=== PATIENT | male | born 1965 | race Caucasian/White ===

== ENCOUNTER 2022-09-22 18:20 | Inpatient (IN) | payer SELFPAY ==
[~2022-09-22 18:20] MED LIST: Iopamidol 370 76% 100 ML VIAL ONE
[2022-09-22] MEDS ORDERED: Nitroglycerin 0.4 MG TAB (25 Tab Bottle) SL PRN (20:08)
[2022-09-22] MEDS ORDERED: Morphine 2 MG/ML VIAL SLOW IVP PRN (20:08)
[2022-09-22] MEDS ORDERED: Aggrastat 12.5 MG/250 ML 250 ML IVPB SCH (20:15)
[2022-09-22] MEDS ORDERED: Heparin 10,000 UNITS/ 10 ML VIAL SLOW IVP SCH (20:30)
[2022-09-22] MEDS ORDERED: Heparin 25,000 units/D5W 500 ML IVPB SCH (20:30)
[2022-09-22 21:12] VITALS: BMI 27.0
[2022-09-22] MEDS: Atorvastatin Calcium 40 MG TAB PO SCH (21:29)
[2022-09-22] MEDS ORDERED: Clopidogrel Bisulfate 300 MG TAB PO SCH (21:30)
[2022-09-22 21:55] LABS: Hemoglobin 15.2 g/dL (14.0-18.0); Platelet Count 227 10x3/uL (130-400)
[2022-09-22] MEDS ORDERED: Aspirin Chewable 81 MG TAB PO SCH (22:15)
[2022-09-22 22:17] LABS: CKMB 14.5 ng/mL (0-6.6)
[2022-09-22 22:23] LABS: PTT 148.9 sec (22.9-36.1)
[2022-09-22] MEDS ORDERED: Electrolyte Replacement Protocol FS SCH (22:30)
[2022-09-22 22:48] LABS: Troponin I 0.984 ng/mL (< 0.028)
[2022-09-23 01:51] LABS: #Basophils 0.1 thou/uL (0.0-0.2); #Eosinphils 0.1 thou/uL (0.0-0.7); #Lymphocytes 1.4 thou/uL (1.20-3.40); #Monocytes 0.5 thou/uL (0.11-0.59); #Neutrophils 4.7 thou/uL (1.40-6.50); %Basophils 0.8 % (0.0-1.0); %Lymphocytes 21.4 % (21.0-51.0); %Monocytes 6.6 % (0.0-10.0); %Neutrophils 70.2 % (42.0-75.0); Hemoglobin 15.2 g/dL (14.0-18.0); Mean Corpuscular HGB CONC 35.9 g/dL (32.0-36.0); Mean Corpuscular Hemoglobin 33.6 pg (27.0-31.0); Mean Corpuscular Volume 93.7 fl (78.0-98.0); Mean Platelet Volume 6.7 fL (7.4-10.4); Platelet Count 199 10x3/uL (130-400); RBC Distribution Width 11.4 % (11.5-14.5); Red Blood Cell (RBC) Count 4.53 mill/uL (4.70-6.10); White Blood Cell (WBC) Count 6.7 10x3/uL (4.8-10.8)
[2022-09-23 02:18] LABS: Albumin 3.8 g/dL (3.5-5.0)
[2022-09-23 02:19] LABS: Chloride 106 mmol/L (98-107); Potassium 3.4 mmol/L (3.5-5.1); Sodium 138 mmol/L (136-145)
[2022-09-23 02:20] LABS: Glucose 123 mg/dL (70-105); Protein, Total 5.8 g/dL (6.0-8.3); Triglycerides 153 mg/dL (Less than 150)
[2022-09-23 02:22] LABS: Anion Gap 13 mmol/L (10-20); Bilirubin, Total 0.5 mg/dL (0.2-1.2); Carbon Dioxide 22 mmol/L (22-29)
[2022-09-23 02:23] LABS: Alkaline Phosphatase 84 U/L (40-110)
[2022-09-23 02:24] LABS: BUN (Urea Nitrogen) 14 mg/dL (8.4-25.7); Calc. Creatinine Clearance 100 mL/min (70-130); Estimated GFR 90
[2022-09-23 02:25] LABS: AST (SGOT) 46 U/L (5-34); Cholesterol 225 mg/dl (< 200 Desired)
[2022-09-23 02:26] LABS: ALT (SGPT) 29 U/L (8-55); Cardiac Risk 4.8 (Less than 4.5); HDL Cholesterol 47 mg/dL (>60 Neg Risk); LDL Cholesterol, Calculated 147 mg/dL
[2022-09-23 02:35] LABS: Troponin I 4.135 ng/mL (< 0.028)
[2022-09-23 02:39] LABS: CKMB 55.8 ng/mL (0-6.6)
[2022-09-23 02:53] LABS: Free T4 (Free Thyroxine) 1.11 ng/dL (0.70-1.48)
[2022-09-23 02:54] LABS: Thyroid Stimulating Hormone 1.7439 uIU/mL (0.35-4.94)
[2022-09-23] MEDS: Famotidine 20 MG TAB PO SCH ×2 (08:58→20:16)
[2022-09-23] MEDS: Aspirin Chewable 81 MG TAB PO SCH (08:58)
[2022-09-23] MEDS: Clopidogrel Bisulfate 75 MG TAB PO SCH (08:58)
[2022-09-23] MEDS: Atorvastatin Calcium 40 MG TAB PO SCH (20:16)
[2022-09-24 04:53] VITALS: BP 118/69; TEMP 98.7
[2022-09-24] MEDS: Clopidogrel Bisulfate 75 MG TAB PO SCH (09:49)
[2022-09-24] MEDS: Famotidine 20 MG TAB PO SCH (09:49)
[2022-09-24] MEDS: Aspirin Chewable 81 MG TAB PO SCH (10:16)
== END 2022-09-24 15:54 | disposition home or self-care (01) | DRG 251 ==
LOC: ERS 18:20 → CCU 20:25 → 2NO 09-23 17:53
PROVIDERS: ADMIT Internal Medicine Cardiovascular Disease; ATTEND Internal Medicine Cardiovascular Disease
PROC: 4A023N7 Measurement of Cardiac Sampling and Pressure, Left Heart, Percutaneous Approach (ICD-10-PCS; principal; 2022-09-22)
PROC: 02703ZZ Dilation of Coronary Artery, One Artery, Percutaneous Approach (ICD-10-PCS; 2022-09-22)
PROC: 02C03ZZ Extirpation of Matter from Coronary Artery, One Artery, Percutaneous Approach (ICD-10-PCS; 2022-09-22)
PROC: B2111ZZ Fluoroscopy of Multiple Coronary Arteries using Low Osmolar Contrast (ICD-10-PCS; 2022-09-22)
PROC: B2151ZZ Fluoroscopy of Left Heart using Low Osmolar Contrast (ICD-10-PCS; 2022-09-22)
DX: I21.19 ST elevation (STEMI) myocardial infarction involving other coronary artery of inferior wall (principal); M30.3 Mucocutaneous lymph node syndrome [Kawasaki]; I25.41 Coronary artery aneurysm
CPT/HCPCS: 36415; 80053; 80061; 82553; 83880; 84439; 84443; 84484; 85025; 85347; 85730; 92920; 92973; 93005; 93010; 93306; 93458; 93798; C1725; C1757; C1769; C1887; J1644; Q9967